=== PATIENT | female | born 1960 | race Caucasian/White ===

== ENCOUNTER → 2016-10-09 | Outpatient (CLI) | payer OTHER ==
[~2016-10-09] MED LIST: BETA TCP PO; DIGE1CAP7 PO; FERR325T74 PO; IBUP-1427 PO; Iron PO; [UNRECOGNIZED DRUG - OTHER] PO
== END | disposition home or self-care (01) ==
LOC: C.PAPS 09:32
PROVIDERS: ATTEND Obstetrics & Gynecology
DX: Z01.419 Encounter for gynecological examination (general) (routine) without abnormal findings (principal)

== ENCOUNTER → 2016-10-17 | Outpatient (CLI) | payer OTHER ==
--- NOTE | 2016-10-17 15:18 | MAMMOGRAPHY REPORT ---
BILATERAL DIGITAL SCREENING MAMMOGRAM TOMOSYNTHESIS WITH CAD: 10/17/2016 TECHNIQUE: Breast tomosynthesis in addition to standard 2D mammography was performed. Current study was also evaluated with a Computer Aided Detection (CAD) system. COMPARISON: No prior exams were available for comparison. BREAST COMPOSITION: There are scattered areas of fibroglandular density in both breasts. FINDINGS: No suspicious masses, calcifications, or areas of architectural distortion are noted in e ither breast. IMPRESSION: ACR BI-RADS CATEGORY 1: NEGATIVE There is no mammographic evidence of malignancy. A 1 year screening mammogram is recommended. The p atient will receive written notification of the results. Approximately 10% of breast cancers are not detected with mammography. A negative mammographic repor t should not delay biopsy if a clinically suggestive mass is present. Stephani Fountain M.D. ah/:10/17/2016 14:02:29 Finish Sander: Susanna PIERCE)(Vickie), [facility] letter sent: Normal 1/2 BI-RADS Code: ACR BI-RADS Category 1: Negative
== END | disposition home or self-care (01) ==
LOC: C.MAMM 11:26
PROVIDERS: ATTEND Obstetrics & Gynecology
DX: Z12.31 Encounter for screening mammogram for malignant neoplasm of breast (principal)

== ENCOUNTER 2016-10-31 15:04 | Emergency (ER) | payer OTHER ==
[~2016-10-31] VITALS: Ht 162.6 cm; Wt 91.6 kg
[~2016-10-31 15:04] MED LIST changes: -Iron PO
[2016-10-31 15:43] VITALS: TEMP 36.6; Ht 162.6 cm; Wt 91.6 kg
[2016-10-31] MEDS ORDERED: HYDROmorphone INJ 0.5 MG/0.5 ML SYR IV STA (16:43)
[2016-10-31] MEDS ORDERED: SODIUM CHLORIDE 0.9% 1000ML 1,000 ML IV ONE (16:45)
[2016-10-31] MEDS ORDERED: Iron PO (16:47)
[2016-10-31 16:56] LABS: BASO % 0.3 %; BASO ABS # 0.03 K/uL (0-0.2); COMPLETE YES; EOS % 2.5 %; HEMATOCRIT 47.6 % (37-47); IG% 0.3 %; LYMPH % 42.8 %; LYMPH ABS # 4.55 K/uL (1.2-3.4); MEAN CELL VOLUME 92.2 fL (80-100); MEAN CORPUSCULAR HGB CONC 33.6 g/dl (32-36); MEAN PLATELET VOLUME 11.4 fL (7.4-10.4); MONO % 4.8 %; NEUT % 49.3 %; PLATELET COUNT 248 K/uL (130-400); RED BLOOD COUNT 5.16 M/uL (4.2-5.4); WHITE BLOOD COUNT 10.64 K/uL (4.8-10.8)
[2016-10-31 17:03] LABS: URINE APPEARANCE CLOUDY (CLEAR); URINE BILIRUBIN NEG (NEG); URINE COLOR YELLOW; URINE EPITHELIAL CELL AUTO >30 /lpf (0-5); URINE NITRITE NEG (NEG); URINE PH 7.5 (4.5-7.5); URINE SPECIFIC GRAVITY 1.017 (1.000-1.030); UROBILINOGEN NEG (NEG); ZZUR CULT IF INDIC CLEAN CATCH NO
--- NOTE | 2016-10-31 17:04 | EMERGENCY ROOM VISIT NOTE ---
History Report prepared by Nadia: Carolina Winter Under the Supervision of: Dr. Fausto Owen D.O. First contact with patient: 16:38 Chief Complaint: ABDOMINAL PAIN Stated Complaint: PAIN IN LIVER AREA AND CHEST AREA Nursing Triage Summary: had stone removed from bile duct and left upper quad pain chest pain for couple weeks intermittantly History of Present Illness The patient is a 56 year old female who presents to the Emergency Room with complaints of persistent right upper quadrant abdominal pain that began several days ago. He currently rates his discomfort as a 4-5/10 in severity, but at it' s worst it has been between 8-10/10 in severity. The patient states that at the end of August she had been experiencing right upper quadrant abdominal pain. She states that after several testings, it was revealed that the patient had a stone in her bile duct. The patient states that she had the stone removed at that time. She states that she previously had a cholecystectomy in 2009, and states that she was told that the stone has been in the bile duct since then. The patient states that her pain that she is experiencing today is similar to the pain she experienced with the stone that was in her bile duct. She states that she has been having abnormal bowel movements, noting that they are waxy. The patient additionally notes intermittent chest pain for the past couple weeks. She denies having any stents placed in her liver and denies being told that she had scar build up. The patient states that she is a smoker. Source of History: patient Onset: several days ago Position: abdomen (RUQ) Symptom Intensity: 4-5/10 Timing: other (persistent) Associated Symptoms: + chest pain Note: Associated Symptoms: waxy bowel movements. Review of Systems See above for pertinent positives & negatives. A total of 10 systems reviewed and were otherwise negative. Past Medical & Surgical Surgical Problems: (1) S/P cholecystectomy (2) S/P dilation and curettage (3) S/P tubal ligation Family History No pertinent family history stated. Social History Smoking Status: Current Every Day Smoker Marital Status: Occupation Status: disabled Current/Historical Medications Scheduled Digestive Enzymes (Digestive Enzymes), 1 TAB PO BID [Iron], 25 MG PO DAILY Allergies Coded Allergies: Iodinated Diagnostic Agents (Verified Allergy, Mild, HIVES, 08/12/16) Iodine (Verified Allergy, Mild, RED ON SORE AREAS WHEN USED ON SKIN, ) Monosodium Glutamate (Verified Allergy, Mild, MIGRAINES, 08/12/16) Uncoded Allergies: DYES (Allergy, Mild, AVOID ALL DYE COLOR - KIDNEY PAIN, 08/07/16) WILL BE HAVING MORE TESTING THE MONTH OF AUGUST Physical Exam Vital Signs Date Time Temp Pulse Resp B/P Pulse Ox O2 Delivery O2 Flow Rate FiO2 10/31/16 17:03 86 16 99 Room Air 10/31/16 16:46 85 10/31/16 15:43 36.6 88 18 147/81 96 Physical Exam GENERAL: Patient is well appearing and in no acute distress. HEENT: No acute trauma, normocephalic atraumatic, mucous membranes moist, no nasal congestion, no scleral icterus. NECK: No stridor, no adenopathy, no meningismus, trachea is midline. LUNGS: No dyspnea. Clear to auscultation and equal bilaterally. No wheeze, no rhonchi. HEART: Regular rate and rhythm. No murmurs, rubs, gallops appreciated. ABDOMEN: Soft, nontender, bowel sounds positive, no masses appreciated, no peritonitis. BACK: No midline tenderness, no CVA tenderness EXTREMITIES: Normal motion all extremities, no cyanosis, no edema. NEUROLOGIC: Alert and oriented, no acute motor or sensory deficits, no focal weakness, cranial nerves grossly intact. SKIN: No rash, no jaundice, no diaphoresis. Medical Decision & Procedures Laboratory Results 10/31/16 16:40 Red Blood Count 5.16, Mean Corpuscular Volume 92.2, Mean Corpuscular Hemoglobin 31.0, Mean Corpuscular Hemoglobin Concent 33.6, Mean Platelet Volume 11.4, Neutrophils (%) (Auto) 49.3, Lymphocytes (%) (Auto) 42.8, Monocytes (%) (Auto) 4.8, Eosinophils (%) (Auto) 2.5, Basophils (%) (Auto) 0.3, Neutrophils # (Auto) 5.25, Lymphocytes # (Auto) 4.55, Monocytes # (Auto) 0.51, Eosinophils # (Auto) 0.27, Basophils # (Auto) 0.03 10/31/16 16:40 Test 10/31/16 16:40 10/31/16 17:54 White Blood Count 10.64 K/uL (4.8-10.8) Red Blood Count 5.16 M/uL (4.2-5.4) Hemoglobin 16.0 g/dL (12.0-16.0) Hematocrit 47.6 % (37-47) Mean Corpuscular Volume 92.2 fL (80-100) Mean Corpuscular Hemoglobin 31.0 pg (25-34) Mean Corpuscular Hemoglobin Concent 33.6 g/dl (32-36) Platelet Count 248 K/uL (130-400) Mean Platelet Volume 11.4 fL (7.4-10.4) Neutrophils (%) (Auto) 49.3 % Lymphocytes (%) (Auto) 42.8 % Monocytes (%) (Auto) 4.8 % Eosinophils (%) (Auto) 2.5 % Basophils (%) (Auto) 0.3 % Neutrophils # (Auto) 5.25 K/uL (1.4-6.5) Lymphocytes # (Auto) 4.55 K/uL (1.2-3.4) Monocytes # (Auto) 0.51 K/uL (0.11-0.59) Eosinophils # (Auto) 0.27 K/uL (0-0.5) Basophils # (Auto) 0.03 K/uL (0-0.2) RDW Standard Deviation 48.1 fL (36.4-46.3) RDW Coefficient of Variation 14.2 % (11.5-14.5) Immature Granulocyte % (Auto) 0.3 % Immature Granulocyte # (Auto) 0.03 K/uL (0.00-0.02) Urine Color YELLOW Urine Appearance CLOUDY (CLEAR) Urine pH 7.5 (4.5-7.5) Urine Specific [place] 1.017 (1.000-1.030) Urine Protein NEG (NEG) Urine Glucose (UA) NEG (NEG) Urine Ketones NEG (NEG) Urine Occult Blood TRACE (NEG) Urine Nitrite NEG (NEG) Urine Bilirubin NEG (NEG) Urine Urobilinogen NEG (NEG) Urine Leukocyte Esterase TRACE (NEG) Urine WBC (Auto) 1-5 /hpf (0-5) Urine RBC (Auto) 10-30 /hpf (0-4) Urine Hyaline Casts (Auto) 0 /lpf (0-5) Urine Epithelial Cells (Auto) >30 /lpf (0-5) Urine Bacteria (Auto) NEG (NEG) Anion Gap 7.0 mmol/L (3-11) Est Creatinine Clear Calc Drug Dose 95.7 ml/min Estimated GFR () 108.5 Estimated GFR (Non- 93.6 BUN/Creatinine Ratio 15.3 (10-20) Calcium Level 9.5 mg/dl (8.5-10.1) Total Bilirubin 0.6 mg/dl (0.2-1) Direct Bilirubin 0.1 mg/dl (0-0.2) Aspartate Amino Transf (AST/SGOT) 12 U/L (15-37) Alanine Aminotransferase (ALT/SGPT) 24 U/L (12-78) Alkaline Phosphatase 108 U/L (45-117) Total Protein 7.7 gm/dl (6.4-8.2) Albumin 4.0 gm/dl (3.4-5.0) Lipase 132 U/L (73-393) Bedside Troponin I 0.000 ng/ml (0-0.045) Laboratory results as reviewed by me. Medications Administered Medications (Trade) Dose Ordered Sig/Renetta Route Start Time Stop Time Status Last Admin Dose Admin Sodium Chloride (Nss 1000ml) 1,000 ml @ 999 mls/hr Q1H1M ONCE IV 10/31/16 16:45 10/31/16 17:45 DC 10/31/16 17:03 999 MLS/HR ECG Indication: chest pain Rate (beats per minute): 76 Rhythm: normal sinus Findings: other (normal axis, normal intervals, no ST segment changes) ED Course 1645: The patient was evaluated in room B2. A complete history and physical exam was performed. Ordered Sodium Chloride 1000 ml @ 999 mls/hr IV. 1736: I reevaluated the patient and she is resting comfortably. I discussed the exam findings with her and I discussed the treatment plan. She verbalized complete understanding and agreement. She is ready to go home. Medical Decision Differential diagnosis: Etiologies such as appendicitis, diverticulitis, PUD, biliary pathology, UTI, pancreatitis, obstruction, mesenteric ischemia, aortic pathology, infections, inflammatory bowel disease, renal colic, as well as others were entertained. Patient is a 56-year-old female with significant past medical history for a cholecystectomy in 2009 and a follow-up ERCP for a retained common bile duct stone August 2016. She presents today with a several day history of increasing right upper quadrant pain similar to the tach she was having this with the retained stone. She also states she is passing "stones" through her stool. She also has associated chest pain when she has this right upper quadrant pain. There is no family history of sudden cardiac , there is a family history she believes of her mother having a heart attack before age 55. She does smoke, denies illicit drug use, does consume alcohol socially. Laboratory examination was unremarkable today, her LFTs were normal, troponins negative. She gets a heart score of 3, which is low risk for cardiac events. I discussed that nothing in medicine is 100%, and advised her to follow up with her primary care doc next week for possible cardiac evaluation. Again I reiterated do not feel that this is a cardiac event, her EKG is normal, troponins are negative. I did offer the patient admission if she so desired however the patient is opting for outpatient follow-up which is reasonable given her low heart score. Impression Primary Impression: Right upper quadrant abdominal pain Additional Impressions: Tobacco abuse S/P cholecystectomy Scribe Attestation The scribe's documentation has been prepared under my direction and personally reviewed by me in its entirety. I confirm that the note above accurately reflects all work, treatment, procedures, and medical decision making performed by me. Departure Information Dispostion Home / Self-Care Referrals Nikita Chaudhary M.D. (PCP) Forms Call Back Authorization, HOME CARE DOCUMENTATION FORM, IMPORTANT VISIT INFORMATION Patient Instructions Abdominal Pain, My [employer] Additional Instructions No smoking. Follow-up with her primary care doctor this week Return for severe chest pain, shortness of breath, passing out, or any other concerns. Follow-up with your GI doctor as previously scheduled, you may need evaluation for scarring in the bile duct. Problem Qualifiers
[2016-10-31 17:06] LABS: BUN/CREATININE RATIO 15.3 (10-20); CALCIUM 9.5 mg/dl (8.5-10.1); CREATININE 0.72 mg/dl (0.60-1.20); POTASSIUM 3.8 mmol/L (3.5-5.1)
[2016-10-31 17:10] LABS: MANUAL MICROSCOPIC REQUIRED? NO; REVIEW REQ? NO
[2016-10-31 18:37] VITALS: BP 147/99; PULSE 82; O2SAT 97
== END 2016-10-31 18:38 | disposition home or self-care (01) ==
LOC: C.EDB 15:06
DX: R10.11 Right upper quadrant pain (principal); F17.210 Nicotine dependence, cigarettes, uncomplicated; Z90.49 Acquired absence of other specified parts of digestive tract; Z98.51 Tubal ligation status; Z79.899 Other long term (current) drug therapy

== ENCOUNTER → 2017-01-22 | Outpatient (CLI) | payer OTHER ==
[~2017-01-22] MED LIST changes: -BETA TCP PO; -FERR325T74 PO; -IBUP-1427 PO; +Iron PO; -[UNRECOGNIZED DRUG - OTHER] PO
[2017-01-22 12:21] LABS: BASO % 0.4 %; BASO ABS # 0.05 K/uL (0-0.2); COMPLETE YES; EOS % 1.5 %; HEMATOCRIT 47.6 % (37-47); IG% 0.2 %; LYMPH % 26.7 %; LYMPH ABS # 3.25 K/uL (1.2-3.4); MEAN CELL VOLUME 93.7 fL (80-100); MEAN CORPUSCULAR HEMOGLOBIN 31.5 pg (25-34); MEAN CORPUSCULAR HGB CONC 33.6 g/dl (32-36); MONO % 4.4 %; NEUT % 66.8 %; PLATELET COUNT 254 K/uL (130-400); RED BLOOD COUNT 5.08 M/uL (4.2-5.4); WHITE BLOOD COUNT 12.15 K/uL (4.8-10.8)
[2017-01-22 12:33] LABS: URINE APPEARANCE CLEAR (CLEAR); URINE BILIRUBIN NEG (NEG); URINE COLOR YELLOW; URINE EPITHELIAL CELL AUTO 0-5 /lpf (0-5); URINE NITRITE NEG (NEG); URINE PH 7.5 (4.5-7.5); URINE SPECIFIC GRAVITY 1.005 (1.000-1.030); UROBILINOGEN NEG (NEG)
[2017-01-22 12:45] LABS: MANUAL MICROSCOPIC REQUIRED? NO; REVIEW REQ? NO
[2017-01-22 13:19] LABS: FERRITIN 91.2 ng/ml (8.0-388.0)
== END | disposition home or self-care (01) ==
LOC: C.LABBFT 08:33
PROVIDERS: ATTEND Internal Medicine
DX: N13.30 Unspecified hydronephrosis (principal)

== ENCOUNTER → 2017-10-12 | Outpatient (CLI) | payer OTHER | END | disposition home or self-care (01) | LOC: C.PATHSPEC 16:59 | PROVIDERS: ATTEND Urology | DX: N13.30 Unspecified hydronephrosis (principal) ==

== ENCOUNTER 2021-05-07 19:48 | Inpatient (IN) ==
[2021-05-07] MEDS ORDERED: LABETALOL HCL 100 MG TAB PO ONE (20:22)
--- NOTE | 2021-05-07 20:22 | Emergency Department Note ---
Impression & Plan Psychosis, Delusions, Hypertension ED Provider Note NAME: ARNAV WEIGHT AGE: 61 SEX: F : 1960 ARRIVES VIA: [employer] INFORMANT: [Patient][notes] ED PROVIDER(S): [Venkat Munguia MD] CHIEF COMPLAINT: Mental health evaluation HISTORY OF PRESENT ILLNESS: The patient is a 61-year-old female who presents with a 302 petition and warrant against her. The patient is reportedly delusional and paranoid. She is not sleeping. 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 She feels if she does not help with the planes, they will crash. 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 She states "people hear me that is all I can say." The patient does not believe she needs to be here. She was brought by police. She denies using any psychiatric medications on a regular basis. She states that she used to take iron. She has no current medications prescribed. Of note, the patient carries a history of a previous 302 evaluation. REVIEW OF SYSTEMS: See HPI for pertinent positives and negatives. A total of ten systems were reviewed and were otherwise negative. PMHx/PSHx: See Below SOCIAL HISTORY: See Below. PHYSICAL EXAM: GENERAL: Patient is in no acute distress. HEENT: No acute trauma, normocephalic atraumatic, mucous membranes moist, no nasal congestion, no scleral icterus. NECK: No stridor, no adenopathy, no meningismus, trachea is midline. LUNGS: Clear to auscultation bilaterally, no wheeze, no rhonchi, breath sounds equal. HEART: Mildly tachycardic, regular rhythm, no murmurs. ABDOMEN: Soft, nontender, bowel sounds positive, no hernias, no peritonitis. EXTREMITIES: No cyanosis or edema, full range of motion of all the joints without pain or difficulty, no signs for acute trauma. NEUROLOGIC: Oriented x 3, no acute motor or sensory deficits, no focal weakness. SKIN: No rash, no jaundice, no diaphoresis. Psychiatric: Paranoid, does appear to demonstrate some delusional thinking. Denies being suicidal. Does not think she needs to be at the hospital. DIFFERENTIAL DIAGNOSIS: Mood disorder, infection, hypoglycemia, electrolyte abnormalities, anxiety, depression, delusional thinking, schizophrenia, cardiac sources, intracerebral event, toxicologic etiology, trauma, neurologic event, as well as other pathologies. EMERGENCY DEPARTMENT COURSE/PROCEDURES: ECG: Indication was tachycardia. The ECG shows a sinus tachycardia with a rate of 102. There is no ST elevation, no PVCs. The QTc is 469. Continuous Cardiac Monitoring: An order was placed for continuous cardiac monitoring. The monitor shows a rate of 119 with sinus tachycardia. MEDICAL DECISION MAKING: There is a mild leukocytosis, this has been demonstrated before. No concerning anemia. There was a normal platelet count. No significant electrolyte abnormality or kidney failure. No concerning liver enzyme elevation. The patient appeared to be in a euthyroid state. ECG showed a sinus tachycardia, no acute ischemic change. Cardiac enzyme testing x1 was not consistent with acute cardiac injury. Urinalysis showed contamination, no infection. Aspirin, Tylenol and alcohol levels were undetectable. Urine tox was negative. Covid testing returned negative. The patient was quite hypertensive. Looking back at her previous visits, she has been running a high blood pressure. The patient did agree to take 100 mg of oral labetalol. This brought her blood pressure down, the pressure is now 146/97, markedly improved. The patient was felt medically clear for a psychiatric evaluation. She presents with a 302 petition and warrant against her. She has been delusional, she appears to show evidence for psychosis. By report, she has been noncompliant with care. The patient is in no condition to be discharged home. She requires an inpatient psychiatric stay. The medical portion of the 302 was signed. A bed search is underway. At this point, the case has been assumed by Dr. Flores at the change of shift, please see his notes for the final disposition/plan. Past Med/Surg History Medical History Hypertension Social History Smoking Status: Current every day smoker Tobacco Type: Cigarettes Preferred Language: Latvian Feels Safe at Home: Yes Allergies Allergies Allergy/AdvReac Type Severity Reaction Status Date / Time Iodinated Contrast Media Allergy Mild HIVES Verified 04/15/21 13:48 iodine Allergy Mild RED ON Verified 04/15/21 13:48 SORE AREAS WHEN USED ON SKIN monosodium glutamate Allergy Mild MIGRAINES Verified 04/15/21 13:48 DYES Allergy Mild AVOID ALL Uncoded 04/15/21 13:48 DYE COLOR - KIDNEY PAIN Home Meds Home Medications Medication Instructions Recorded Confirmed No Known Home Medications 04/15/21 05/07/21 Results & Data (ED) Vital Signs Vital Signs - 24 hr 05/07/21 20:00 05/07/21 21:25 05/07/21 21:43 Temperature 37.1 C Temperature Source Oral Pulse Rate 120 H 107 H 102 H Pulse Rhythm Regular Respiratory Rate 20 19 16 Respiratory Effort / Characteristics Non-Labored Spontaneous Respiratory Depth Normal Respiratory Pattern Regular Blood Pressure 176/121 H 227/128 H 183/128 H Blood Pressure Mean 139 161 146 Blood Pressure Position Sitting Pulse Oximetry 96 Oxygen Delivery Method Room Air Sepsis Recent Fever Within 48 Hours No Sepsis New/Unexplained Change in Mental Status No Sepsis Action Taken by Nursing No Action Required 05/07/21 21:44 05/07/21 22:00 05/07/21 22:30 Temperature Temperature Source Pulse Rate 102 H 89 87 Pulse Rhythm Respiratory Rate 20 20 22 Respiratory Effort / Characteristics Respiratory Depth Respiratory Pattern Blood Pressure 183/128 H 179/115 H 159/99 H Blood Pressure Mean 146 136 119 Blood Pressure Position Pulse Oximetry 98 Oxygen Delivery Method Room Air Sepsis Recent Fever Within 48 Hours Sepsis New/Unexplained Change in Mental Status Sepsis Action Taken by Nursing 05/07/21 23:00 Temperature Temperature Source Pulse Rate 92 H Pulse Rhythm Respiratory Rate 17 Respiratory Effort / Characteristics Respiratory Depth Respiratory Pattern Blood Pressure 146/97 H Blood Pressure Mean 113 Blood Pressure Position Pulse Oximetry Oxygen Delivery Method Sepsis Recent Fever Within 48 Hours Sepsis New/Unexplained Change in Mental Status Sepsis Action Taken by Group Home Medications Current Medication List: was personally reviewed by me Laboratory Data Attestation: I reviewed the patient's lab results. Result diagrams: 05/07/21 20:48 05/07/21 20:48 Lab Results 05/07/21 05/07/21 05/07/21 Range/Units 20:05 20:08 20:48 WBC 11.47 H (4.8-10.8) K/uL RBC 5.32 (4.2-5.4) M/uL Hgb 16.2 H (12.0-16.0) g/dL Hct 48.6 H (37-47) % MCV 91.4 (80-100) fL MCH 30.5 (25-34) pg MCHC 33.3 (32-36) g/dL RDW Std Deviation 48.5 H (36.4-46.3) fL RDW Coeff of Amilcar 14.4 (11.5-14.5) % Plt Count 241 (130-400) K/uL MPV 11.6 H (7.4-10.4) fL Immature Gran % (Auto) 0.2 % Neut % (Auto) 56.1 % Lymph % (Auto) 35.1 % [place] % (Auto) 6.6 % Eos % (Auto) 1.7 % Baso % (Auto) 0.3 % Neut # (Auto) 6.43 (1.4-6.5) K/uL Lymph # (Auto) 4.03 H (1.2-3.4) K/uL [place] # (Auto) 0.76 H (0.11-0.59) K/uL Eos # (Auto) 0.20 (0-0.5) K/uL Baso # (Auto) 0.03 (0-0.2) K/uL Immature Gran # (Auto) 0.02 (0.00-0.02) K/uL Sodium (136-145) mmol/L Potassium (3.5-5.1) mmol/L Chloride (98-107) mmol/L Carbon Dioxide (21-32) mmol/L Anion Gap (3-11) BUN (7-18) mg/dl Creatinine (0.6-1.2) mg/dl Est Cr Clr Drug Dosing ml/min Est GFR ( Amer) ml/min Est GFR (Non-Af Amer) ml/min BUN/Creatinine Ratio (10-20) Glucose (70-99) mg/dl Calcium (8.5-10.1) mg/dl Total Bilirubin (0.2-1) mg/dl AST (15-37) U/L ALT (12-78) U/L Alkaline Phosphatase (45-117) U/L Troponin I (0-0.045) ng/ml Total Protein (6.4-8.2) gm/dl Albumin (3.4-5.0) gm/dl Globulin (2.5-4.0) gm/dl Albumin/Globulin Ratio (0.9-2) TSH (0.300-4.500) uIu/ml Urine Color Dark Yellow Urine Appearance Clear (Clear) Urine pH 5.5 (4.5-7.5) Ur Specific [place] 1.025 (1.000-1.030) Urine Protein Negative (Negative) Urine Glucose (UA) Negative (Negative) Urine Ketones Trace H (Negative) Urine Blood 2+ H (Negative) Urine Nitrite Negative (Negative) Urine Bilirubin Negative (Negative) Urine Urobilinogen Negative (Negative) Ur Leukocyte Esterase Negative (Negative) Urine WBC (Auto) 5-10 H (0-5) /hpf Urine RBC (Auto) 0-4 (0-4) /hpf U Hyaline Cast (Auto) 5-10 H (0-5) /lpf U Epithel Cells (Auto) >30 H (0-5) /lpf Urine Bacteria (Auto) 1+ H (Negative) Salicylates (2.8-20) mg/dl Urine Opiates Screen Neg (Neg) Ur Methadone, Qual Neg (Neg) Acetaminophen (10-30) ug/ml Urine Barbiturates Neg (Neg) Ur Phencyclidine (PCP) Neg (Neg) U Amphetamin/Meth Scrn Neg (Neg) MDMA (Ecstasy) Screen Neg (Neg) U Benzodiazepines Scrn Neg (Neg) Ur Cocaine Metabolite Neg (Neg) U Marijuana (THC) Screen Neg (Neg) Ethyl Alcohol mg/dL (0-3) mg/dl COVID-19 Eval Order SARS-CoV-2, RNA, NAAT (NEGATIVE) 05/07/21 05/07/21 05/07/21 Range/Units 20:48 20:48 20:48 WBC (4.8-10.8) K/uL RBC (4.2-5.4) M/uL Hgb (12.0-16.0) g/dL Hct (37-47) % MCV (80-100) fL MCH (25-34) pg MCHC (32-36) g/dL RDW Std Deviation (36.4-46.3) fL RDW Coeff of Amilcar (11.5-14.5) % Plt Count (130-400) K/uL MPV (7.4-10.4) fL Immature Gran % (Auto) % Neut % (Auto) % Lymph % (Auto) % [place] % (Auto) % Eos % (Auto) % Baso % (Auto) % Neut # (Auto) (1.4-6.5) K/uL Lymph # (Auto) (1.2-3.4) K/uL [place] # (Auto) (0.11-0.59) K/uL Eos # (Auto) (0-0.5) K/uL Baso # (Auto) (0-0.2) K/uL Immature Gran # (Auto) (0.00-0.02) K/uL Sodium 139 (136-145) mmol/L Potassium 3.4 L (3.5-5.1) mmol/L Chloride 108 H (98-107) mmol/L Carbon Dioxide 26 (21-32) mmol/L Anion Gap 5.0 (3-11) BUN 11 (7-18) mg/dl Creatinine 0.56 L (0.6-1.2) mg/dl Est Cr Clr Drug Dosing 116.0 ml/min Est GFR ( Amer) 116.6 ml/min Est GFR (Non-Af Amer) 100.6 ml/min BUN/Creatinine Ratio 19.9 (10-20) Glucose 118 H (70-99) mg/dl Calcium 8.8 (8.5-10.1) mg/dl Total Bilirubin 0.9 (0.2-1) mg/dl AST 22 (15-37) U/L ALT 41 (12-78) U/L Alkaline Phosphatase 108 (45-117) U/L Troponin I < 0.015 (0-0.045) ng/ml Total Protein 7.2 (6.4-8.2) gm/dl Albumin 3.7 (3.4-5.0) gm/dl Globulin 3.5 (2.5-4.0) gm/dl Albumin/Globulin Ratio 1.0 (0.9-2) TSH 1.200 (0.300-4.500) uIu/ml Urine Color Urine Appearance (Clear) Urine pH (4.5-7.5) Ur Specific [place] (1.000-1.030) Urine Protein (Negative) Urine Glucose (UA) (Negative) Urine Ketones (Negative) Urine Blood (Negative) Urine Nitrite (Negative) Urine Bilirubin (Negative) Urine Urobilinogen (Negative) Ur Leukocyte Esterase (Negative) Urine WBC (Auto) (0-5) /hpf Urine RBC (Auto) (0-4) /hpf U Hyaline Cast (Auto) (0-5) /lpf U Epithel Cells (Auto) (0-5) /lpf Urine Bacteria (Auto) (Negative) Salicylates < 1.7 L (2.8-20) mg/dl Urine Opiates Screen (Neg) Ur Methadone, Qual (Neg) Acetaminophen < 2 L (10-30) ug/ml Urine Barbiturates (Neg) Ur Phencyclidine (PCP) (Neg) U Amphetamin/Meth Scrn (Neg) MDMA (Ecstasy) Screen (Neg) U Benzodiazepines Scrn (Neg) Ur Cocaine Metabolite (Neg) U Marijuana (THC) Screen (Neg) Ethyl Alcohol mg/dL < 3.0 (0-3) mg/dl COVID-19 Eval Order SARS-CoV-2, RNA, NAAT (NEGATIVE) 05/07/21 05/07/21 Range/Units 21:22 21:22 WBC (4.8-10.8) K/uL RBC (4.2-5.4) M/uL Hgb (12.0-16.0) g/dL Hct (37-47) % MCV (80-100) fL MCH (25-34) pg MCHC (32-36) g/dL RDW Std Deviation (36.4-46.3) fL RDW Coeff of Amilcar (11.5-14.5) % Plt Count (130-400) K/uL MPV (7.4-10.4) fL Immature Gran % (Auto) % Neut % (Auto) % Lymph % (Auto) % [place] % (Auto) % Eos % (Auto) % Baso % (Auto) % Neut # (Auto) (1.4-6.5) K/uL Lymph # (Auto) (1.2-3.4) K/uL [place] # (Auto) (0.11-0.59) K/uL Eos # (Auto) (0-0.5) K/uL Baso # (Auto) (0-0.2) K/uL Immature Gran # (Auto) (0.00-0.02) K/uL Sodium (136-145) mmol/L Potassium (3.5-5.1) mmol/L Chloride (98-107) mmol/L Carbon Dioxide (21-32) mmol/L Anion Gap (3-11) BUN (7-18) mg/dl Creatinine (0.6-1.2) mg/dl Est Cr Clr Drug Dosing ml/min Est GFR ( Amer) ml/min Est GFR (Non-Af Amer) ml/min BUN/Creatinine Ratio (10-20) Glucose (70-99) mg/dl Calcium (8.5-10.1) mg/dl Total Bilirubin (0.2-1) mg/dl AST (15-37) U/L ALT (12-78) U/L Alkaline Phosphatase (45-117) U/L Troponin I (0-0.045) ng/ml Total Protein (6.4-8.2) gm/dl Albumin (3.4-5.0) gm/dl Globulin (2.5-4.0) gm/dl Albumin/Globulin Ratio (0.9-2) TSH (0.300-4.500) uIu/ml Urine Color Urine Appearance (Clear) Urine pH (4.5-7.5) Ur Specific [place] (1.000-1.030) Urine Protein (Negative) Urine Glucose (UA) (Negative) Urine Ketones (Negative) Urine Blood (Negative) Urine Nitrite (Negative) Urine Bilirubin (Negative) Urine Urobilinogen (Negative) Ur Leukocyte Esterase (Negative) Urine WBC (Auto) (0-5) /hpf Urine RBC (Auto) (0-4) /hpf U Hyaline Cast (Auto) (0-5) /lpf U Epithel Cells (Auto) (0-5) /lpf Urine Bacteria (Auto) (Negative) Salicylates (2.8-20) mg/dl Urine Opiates Screen (Neg) Ur Methadone, Qual (Neg) Acetaminophen (10-30) ug/ml Urine Barbiturates (Neg) Ur Phencyclidine (PCP) (Neg) U Amphetamin/Meth Scrn (Neg) MDMA (Ecstasy) Screen (Neg) U Benzodiazepines Scrn (Neg) Ur Cocaine Metabolite (Neg) U Marijuana (THC) Screen (Neg) Ethyl Alcohol mg/dL (0-3) mg/dl COVID-19 Eval [facility] SARS-CoV-2, RNA, NAAT NEGATIVE (NEGATIVE) Administered Medications Discontinued Medications Labetalol HCl (Labetalol Hcl 100 Mg Tab) 100 mg PO NOW ONE Stop: 05/07/21 20:23 Last Admin: 05/07/21 21:33 Dose: 100 mg Documented by: [id number] Discharge Plan Visit Data Chief Complaint: Mental Health Evaluation Stated Complaint: 302 ED Provider: Arturo Flores Discharge Problem: Psychosis, Delusions, Hypertension Patient Disposition: Still a Patient Condition: Fair Forms Stand Alone Forms: [facility], Suicide Prevention Resources Prescriptions Prescriptions: No Action No Known Home Medications RF: 0 Referrals Referrals: Gloria Morales MD [Primary Care Provider] -
[2021-05-07 21:02] LABS: Appearance Urine Clear (Clear); Bacteria Urine Automated 1+ (Negative); Bilirubin Urine Negative (Negative); Blood Urine 2+ (Negative); Color Urine Dark Yellow; Epithelial Cell Urine Auto >30 /lpf (0-5); Glucose Urine UA Negative (Negative); Ketones Urine Trace (Negative); Leukocyte Esterase Urine Negative (Negative); Nitrite Urine Negative (Negative); Protein Urine Negative (Negative); Specific Gravity Urine 1.025 (1.000-1.030); Urobilinogen Urine Negative (Negative); pH Urine 5.5 (4.5-7.5)
[2021-05-07 21:05] LABS: Basophils # (auto) 0.03 K/uL (0-0.2); Basophils % (auto) 0.3 %; Eosinophils % (auto) 1.7 %; Hematocrit (blood only) 48.6 % (37-47); Hemoglobin 16.2 g/dL (12.0-16.0); Immature Granulocytes # (auto) 0.02 K/uL (0.00-0.02); Immature Granulocytes % (auto) 0.2 %; Lymphocytes # (auto) 4.03 K/uL (1.2-3.4); Lymphocytes % (auto) 35.1 %; Mean Corpuscular Hemoglobin 30.5 pg (25-34); Mean Corpuscular Hgb Conc 33.3 g/dL (32-36); Mean Corpuscular Volume 91.4 fL (80-100); Mean Platelet Volume 11.6 fL (7.4-10.4); Monocytes # (auto) 0.76 K/uL (0.11-0.59); Monocytes % (auto) 6.6 %; Neutrophils # (auto) 6.43 K/uL (1.4-6.5); Neutrophils % (auto) 56.1 %; Platelet Count 241 K/uL (130-400); RDW Coefficient of Variation 14.4 % (11.5-14.5); RDW Standard Deviation 48.5 fL (36.4-46.3); Red Blood Count 5.32 M/uL (4.2-5.4); White Blood Count 11.47 K/uL (4.8-10.8)
[2021-05-07 21:13] LABS: RBC Urine Automated 0-4 /hpf (0-4)
[2021-05-07 21:25] LABS: Alanine Aminotransferase 41 U/L (12-78); Albumin Level 3.7 gm/dl (3.4-5.0); Aspartate Aminotransferase 22 U/L (15-37); BUN Creatinine Ratio 19.9 (10-20); Blood Urea Nitrogen 11 mg/dl (7-18); Calcium 8.8 mg/dl (8.5-10.1); Carbon Dioxide 26 mmol/L (21-32); Chloride 108 mmol/L (98-107); Est GFR (African American) 116.6 ml/min; Est GFR (Non-African American) 100.6 ml/min; Glucose 118 mg/dl (70-99); Potassium 3.4 mmol/L (3.5-5.1); Sodium 139 mmol/L (136-145)
[2021-05-07 21:26] LABS: Acetaminophen < 2 ug/ml (10-30); Salicylate < 1.7 mg/dl (2.8-20)
[2021-05-07 21:35] LABS: Alkaline Phosphatase 108 U/L (45-117); Bilirubin,Total 0.9 mg/dl (0.2-1); Globulin 3.5 gm/dl (2.5-4.0); Total Protein 7.2 gm/dl (6.4-8.2); Troponin I < 0.015 ng/ml (0-0.045)
[2021-05-07 21:35] LABS: Amphetamines+Metham, Urine Neg (Neg); Barbiturates, Urine Neg (Neg); Benzodiazepine, Urine Neg (Neg); Cocaine, Urine Neg (Neg); MDMA (Ecstacy), Urine Neg (Neg); Methadone, Urine Neg (Neg); Opiate, Urine Neg (Neg); Phencyclidine, Urine Neg (Neg)
--- NOTE | 2021-05-07 23:23 | Emergency Department Note ---
ED Visit Note ED Physician Sign Out Note: 61 yr old female with acute delusional thoughts and paranoia. Long history of psychiatric issues and psychosis. She has been medically cleared and [address] Munguia who signed patient out to me. Pending placement at this time. Initially HTN and refusing anything to calm herself down. After some back and forth eventually just allowed to relax for a while and BP trending down. 3 [place] in to evaluate and will admit. Patient stable at this time. Arturo Flores MD : Psychosis Qualifiers: Psychosis type: unspecified psychosis type Qualified Code(s): F29 - Unspecified psychosis not due to a substance or known physiological condition Hypertension Qualifiers: Hypertension type: unspecified Qualified Code(s): I10 - Essential (primary) hypertension
[2021-05-08] MEDS ORDERED: ALPRAZolam 0.5 MG TABLET PO STA (00:35)
[2021-05-08] MEDS ORDERED: ALUMINUM/MAGNESIUM SUSP 30 ML UDC PO PRN (03:12)
[2021-05-08] MEDS ORDERED: SODIUM CHLORIDE 0.65% NA SOLN 45 ML (OCEAN) PRN (03:12)
[2021-05-08] MEDS ORDERED: hydrOXYzine HCl 25 MG TAB PO PRN ×2 (03:12)
[2021-05-08] MEDS ORDERED: ACETAMINOPHEN 325 MG TAB PO PRN (03:12)
[2021-05-08] MEDS ORDERED: MAGNESIUM HYDROXIDE SUSP 30 ML UDC PO PRN (03:12)
[2021-05-08] MEDS ORDERED: BISMUTH SUBSALICYLATE LIQD 236 ML PO PRN (03:12)
[2021-05-08] MEDS ORDERED: LORazepam 1 MG TAB PO PRN (03:14)
[2021-05-08] MEDS ORDERED: haloperidoL 5 MG TAB PO PRN (03:15)
[2021-05-08] MEDS: NICOTINE 21 MG/24 HR TDSY TD SCH (09:34)
[2021-05-08] MEDS ORDERED: BENZTROPINE MESYLATE 1 MG TAB PO PRN (15:16)
--- NOTE | 2021-05-08 15:16 | History & Physical ---
Date of Service May 08, 2021 Impression / Recommendations Impression 61 yo female with longstanding diagnosis of schizophrenia, no medication for years, presents with increase in paranoia driven primarily by a Capgras' delusion. 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 Additional collateral is needed. (1) Psychosis: Psychosis type: unspecified psychosis type Qualified Code(s): F29 - Unspecified psychosis not due to a substance or known physiological condition 05/08/21--The patient was admitted to the [facility] ([facility] unit) on q15 min checks (behavioral with suicide precautions) for safety. The patient will participate in group, recreational, and milieu therapies and will be offered additional individual and family sessions as clinically appropriate. The patient is adamantly refusing medications at this time, Ativan and antipsychotics were offered. She is attending to ADLs and meals on unit but is unsafe to return home given agitation around belief has been replaced. Her condition appears to be driving hypertension and VS will be monitored. Prn Ativan and Haldol ordered pending additional collateral. May be difficult to justify forced meds but unlikely to recover without them, clearly if ultimately taking meds would need conversion to HEAD. Delusions are sometimes less likely to respond than other positive symptoms. MNPR due to delusions and unpredictable irritability. Inventory Assets Strengths: has been out of hospital for some time, identifies trust in Dr. Akbar Needs: collateral, family involvement in care Risk Factors Assessment Male: No : Yes Do You Have Access To A Gun?: Yes (she reports that got guns returned after her last 302) Mental Health Diagnoses: Yes Substance Use Disorders: No Previous Attempt: No Protective Factors Assessment Employed: No Psychiatric History Identifying Data ARNAV GARCIA is a 61-year-old F who currently lives in [place] with her , has a history of schizophrenia (untreated with medication for 7+ years), and was admitted on 05/08/21 02:18 on a 302 involuntary commitment for paranoid delusions. Chief Complaint "I don't know why, but they replaced my with another tawanna.". History of Present Illness 61 yo female brought to ED due to family concerns that she is increasingly paranoid, believing that her has been replaced with an imposter. The patient is angry to be hospitalized, believes that the hospital is just trying to make money. Admits that she has been locking herself in her room at night because her has been replaced with "some [place]" as a mole on the back of his head/neck doesn't appear how it used to. She feels this is angry and yells and her wouldn't do that. Her is reportedly working days after several years of night supervisor so she doesn't "like that tawanna out in the workshop". She is convinced that the imposter and who ever put him there are building "things I can't tell you about" to ship to [facility] in [place]. She reports that she is nearing alf but doesn't want to move to [place] with "this " and would instead divorce him. Petitioning statement reports that she has also disconnected the phone line so she can't be monitored and doesn't sleep for up to 72 hours at a time. "If they can replace him, I imagine that they did it to spy on me" She tells me that she worries the man in the home could try to rape her and won't sleep in the room with him. She locks herself in another room. "would you be able to sleep like that?". She was in the ED with daughter 04/15/21 for same complaints but was not felt to meet involuntary commitment criteria at that time. There was some additional concern about disorganization as sometimes leaving the stove on/unattended. Additional beliefs that she can control whether or not planes crash. 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 She states her most recent job was [employer] but was let go due to the pandemic. The patient did receive labetolol 100 mg in the ED for hypertension and is now very focussed on sodium, states she doesn't feel comfortable drinking the Dasani water as too much salt in it. She is eating meals. Past Psychiatric History Current Psychiatric Diagnosis: hx of schizophrenia Outpatient Services: Dr. Akbar, last seen while still [facility]. States that she attempted to start services again through [facility] but family states she cancels intakes. Previous Psych Admissions: 1997 [facility], prior to [facility]. Do You Have Access To A Gun?: Yes (she reports that got guns returned after her last 302) History of Previous Suicide Attempt: No Past Medication Trials: Celexa, Ativan, Xanax, Paxil, Risperdal, probably others Allergies Allergy/AdvReac Type Severity Reaction Status Date / Time Iodinated Contrast Media Allergy Mild HIVES Verified 04/15/21 13:48 iodine Allergy Mild RED ON Verified 04/15/21 13:48 SORE AREAS WHEN USED ON SKIN monosodium glutamate Allergy Mild MIGRAINES Verified 04/15/21 13:48 DYES Allergy Mild AVOID ALL Uncoded 04/15/21 13:48 DYE COLOR - KIDNEY PAIN Home Medications Medication Instructions Recorded Confirmed Type No Known Home Medications 04/15/21 05/07/21 History Family History Family History of: Doesn't Know Alcohol History Hx of Alcohol Use Over the Past 12 Months: Yes ("maybe 3 beers in a year") AUDIT Total Score: 1 Smoking Use Have You Smoked or Used Tobacco Products in the Last 30 Days: Yes tobacco type: cigarettes Smoking Status: Current every day smoker Smoking packs per day: 1 Substance History Hx of Prescription Med Misuse Over the Past 12 Months: No Hx of Over the Counter Med Misuse Over the Past 12 Months: No Hx of Inhalent Misuse Over the Past 12 Months: No Hx of Organic Substance Use Over the Past 12 Months: No Hx of Illegal Substances/Street Drug Use Over Past 12 Months: No Problems as a Result of Past Substance Use: None Identified Personal History Living Arrangements: Home Employment Status: Unemployed Marital Status: Number Of Children: daughter Beliefs That Will Affect Care: None Current Legal Problems: No Additional Comments: patient is relatively uncooperative with history Patient History Medical History Hypertension Social History Smoking Status: Current every day smoker Tobacco Type: Cigarettes Preferred Language: Libyan Communication Ability: Effective Tree Topper Required: No Beliefs That Will Affect Care: None Feels Safe at Home: No Assistive Devices: Glasses Review of Systems Review of Systems: All systems reviewed & are unremarkable except as noted in HPI & below Physical Exam Psychiatric: Orientation: alert and oriented x 3 Apperance: appropriately dressed and appropriately groomed Eye Contact: good eye contact Motor Behavior: no abnormal motor movements Speech: + loud speech (but not pressured) Affect: + irritable affect Mood: + irritable mood Thought Process: + tangential thought process Thought Content: + paranoid and + delusions Suicidal Thoughts: denies suicidal thoughts Homicidal Thoughts: denies homicidal thoughts Hallucinations: no auditory hallucinations and no visual hallucinations Cognition: language grossly intact; + attention not intact Estimated Intelligence: consistent with education level Insight: + poor insight Judgement: + poor judgement Vital Signs (Past 24 Hours): Last Vital Signs Temp 36.6 C 05/08/21 06:27 Pulse 96 H 05/08/21 06:28 Resp 16 05/08/21 06:27 BP 151/87 H 05/08/21 06:28 Pulse Ox 96 05/08/21 03:16 Exam Statement: A physical exam was performed in the ED by Dr. Munguia for the purposes of medical clearance. I accept that physical as correct and adequate for the purposes of the inpatient physical exam. Results & Data ([facility]) Laboratory Results Laboratory Results - last 24 hr 05/07/21 05/07/21 05/07/21 20:05 20:08 20:48 WBC 11.47 H RBC 5.32 Hgb 16.2 H Hct 48.6 H MCV 91.4 MCH 30.5 MCHC 33.3 RDW Std Deviation 48.5 H RDW Coeff of Amilcar 14.4 Plt Count 241 MPV 11.6 H Immature Gran % (Auto) 0.2 Neut % (Auto) 56.1 Lymph % (Auto) 35.1 Taliaferro % (Auto) 6.6 Eos % (Auto) 1.7 Baso % (Auto) 0.3 Neut # (Auto) 6.43 Lymph # (Auto) 4.03 H Taliaferro # (Auto) 0.76 H Eos # (Auto) 0.20 Baso # (Auto) 0.03 Immature Gran # (Auto) 0.02 Sodium Potassium Chloride Carbon Dioxide Anion Gap BUN Creatinine Est Cr Clr Drug Dosing Est GFR ( Amer) Est GFR (Non-Af Amer) BUN/Creatinine Ratio Glucose Calcium Total Bilirubin AST ALT Alkaline Phosphatase Troponin I Total Protein Albumin Globulin Albumin/Globulin Ratio TSH Urine Color Dark Yellow Urine Appearance Clear Urine pH 5.5 Ur Specific Mcgregor 1.025 Urine Protein Negative Urine Glucose (UA) Negative Urine Ketones Trace H Urine Blood 2+ H Urine Nitrite Negative Urine Bilirubin Negative Urine Urobilinogen Negative Ur Leukocyte Esterase Negative Urine WBC (Auto) 5-10 H Urine RBC (Auto) 0-4 U Hyaline Cast (Auto) 5-10 H U Epithel Cells (Auto) >30 H Urine Bacteria (Auto) 1+ H Salicylates Urine Opiates Screen Neg Ur Methadone, Qual Neg Acetaminophen Urine Barbiturates Neg Ur Phencyclidine (PCP) Neg U Amphetamin/Meth Scrn Neg MDMA (Ecstasy) Screen Neg U Benzodiazepines Scrn Neg Ur Cocaine Metabolite Neg U Marijuana (THC) Screen Neg Ethyl Alcohol mg/dL COVID-19 Eval Order SARS-CoV-2, RNA, NAAT 05/07/21 05/07/21 05/07/21 20:48 20:48 20:48 WBC RBC Hgb Hct MCV MCH MCHC RDW Std Deviation RDW Coeff of Amilcar Plt Count MPV Immature Gran % (Auto) Neut % (Auto) Lymph % (Auto) Taliaferro % (Auto) Eos % (Auto) Baso % (Auto) Neut # (Auto) Lymph # (Auto) Taliaferro # (Auto) Eos # (Auto) Baso # (Auto) Immature Gran # (Auto) Sodium 139 Potassium 3.4 L Chloride 108 H Carbon Dioxide 26 Anion Gap 5.0 BUN 11 Creatinine 0.56 L Est Cr Clr Drug Dosing 116.0 Est GFR ( Amer) 116.6 Est GFR (Non-Af Amer) 100.6 BUN/Creatinine Ratio 19.9 Glucose 118 H Calcium 8.8 Total Bilirubin 0.9 AST 22 ALT 41 Alkaline Phosphatase 108 Troponin I < 0.015 Total Protein 7.2 Albumin 3.7 Globulin 3.5 Albumin/Globulin Ratio 1.0 TSH 1.200 Urine Color Urine Appearance Urine pH Ur Specific Mcgregor Urine Protein Urine Glucose (UA) Urine Ketones Urine Blood Urine Nitrite Urine Bilirubin Urine Urobilinogen Ur Leukocyte Esterase Urine WBC (Auto) Urine RBC (Auto) U Hyaline Cast (Auto) U Epithel Cells (Auto) Urine Bacteria (Auto) Salicylates < 1.7 L Urine Opiates Screen Ur Methadone, Qual Acetaminophen < 2 L Urine Barbiturates Ur Phencyclidine (PCP) U Amphetamin/Meth Scrn MDMA (Ecstasy) Screen U Benzodiazepines Scrn Ur Cocaine Metabolite U Marijuana (THC) Screen Ethyl Alcohol mg/dL < 3.0 COVID-19 Eval Order SARS-CoV-2, RNA, NAAT 05/07/21 05/07/21 21:22 21:22 WBC RBC Hgb Hct MCV MCH MCHC RDW Std Deviation RDW Coeff of Amilcar Plt Count MPV Immature Gran % (Auto) Neut % (Auto) Lymph % (Auto) Taliaferro % (Auto) Eos % (Auto) Baso % (Auto) Neut # (Auto) Lymph # (Auto) Taliaferro # (Auto) Eos # (Auto) Baso # (Auto) Immature Gran # (Auto) Sodium Potassium Chloride Carbon Dioxide Anion Gap BUN Creatinine Est Cr Clr Drug Dosing Est GFR ( Amer) Est GFR (Non-Af Amer) BUN/Creatinine Ratio Glucose Calcium Total Bilirubin AST ALT Alkaline Phosphatase Troponin I Total Protein Albumin Globulin Albumin/Globulin Ratio TSH Urine Color Urine Appearance Urine pH Ur Specific Mcgregor Urine Protein Urine Glucose (UA) Urine Ketones Urine Blood Urine Nitrite Urine Bilirubin Urine Urobilinogen Ur Leukocyte Esterase Urine WBC (Auto) Urine RBC (Auto) U Hyaline Cast (Auto) U Epithel Cells (Auto) Urine Bacteria (Auto) Salicylates Urine Opiates Screen Ur Methadone, Qual Acetaminophen Urine Barbiturates Ur Phencyclidine (PCP) U Amphetamin/Meth Scrn MDMA (Ecstasy) Screen U Benzodiazepines Scrn Ur Cocaine Metabolite U Marijuana (THC) Screen Ethyl Alcohol mg/dL COVID-19 Eval [facility] SARS-CoV-2, RNA, NAAT NEGATIVE Diagnostic Findings patient refused head CT Current Inpatient Medications Current Inpatient Medications: Current Inpatient Medications Acetaminophen (Acetaminophen 325 Mg Tab) 650 mg PO Q4H PRN PRN Reason: Headache or Minor Fever Stop: 06/07/21 03:11 Al Hydrox/Mg Hydrox/Simethicone (Aluminum/Magnesium Susp 30 Ml Udc) 30 ml PO Q4H PRN PRN Reason: GI Upset Stop: 06/07/21 03:11 Bismuth Subsalicylate (Bismuth Subsalicylate Liqd 236 Ml) 15 ml PO PRN PRN PRN Reason: Loose Stool Stop: 06/07/21 03:11 Haloperidol (Haloperidol 5 Mg Tab) 5 mg PO Q6H PRN PRN Reason: psychosis Stop: 06/07/21 03:14 Hydroxyzine HCl (Hydroxyzine Hcl 25 Mg Tab) 50 mg PO HSZ PRN PRN Reason: Insomnia Stop: 06/07/21 03:11 Hydroxyzine HCl (Hydroxyzine Hcl 25 Mg Tab) 25 mg PO Q4H PRN PRN Reason: Anxiety Stop: 06/07/21 03:11 Lorazepam (Lorazepam 1 Mg Tab) 1 mg PO Q6 PRN PRN Reason: anxiety Stop: 06/07/21 03:13 Magnesium Hydroxide (Magnesium Hydroxide Susp 30 Ml Udc) 30 ml PO DAILY PRN PRN Reason: Constipation Stop: 06/07/21 03:11 Miscellaneous (Remove Nicoderm Patch) 1 ea N/A DAILY@0859 [facility] Stop: 06/07/21 08:58 Last Admin: 05/08/21 09:33 Dose: Not Given Documented by: Nicotine (Nicotine 21 Mg/24 Hr Tdsy) 21 mg TD QAM [facility] Stop: 06/07/21 08:59 Last Admin: 05/08/21 09:34 Dose: Not Given Documented by: Sodium Chloride (Sodium Chloride 0.65% Na Soln 45 Ml ([place])) 1 - 2 sprays NA PRN PRN PRN Reason: Nasal Dryness/Congestion Stop: 06/07/21 03:11
[2021-05-08] MEDS ORDERED: BENZTROPINE MESYLATE 1 MG/ML 2 ML AMP IM PRN (15:17)
[2021-05-08] MEDS ORDERED: LORazepam 2 MG/ML VIAL (IM USE) IM PRN (15:17)
[2021-05-08] MEDS ORDERED: HALOPERIDOL LACTATE 5 MG/ML 1 ML VIAL IM PRN (15:17)
[2021-05-09] MEDS: NICOTINE 21 MG/24 HR TDSY TD SCH (08:04)
[2021-05-09] MEDS ORDERED: OLANZapine 10 MG/2.1 ML SDV IM PRN ×2 (11:27→12:12)
--- NOTE | 2021-05-09 13:01 | Psychiatric Progress Note ---
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 6 week increase in paranoid and disorganized behavior per family, last antipsychotic medication rx unknown--[facility] pharmacy says no rx since 01/2020 for any medication and no antipsychotics on file in their system. (1) Psychosis: 05/09/21--the patient continues to refuse treatment planning, increase in irritability today, 303 commitment paperwork filed with support of family, will likely require medication over objection. Change prn Haldol to Zyprexa since tolerated/positive response before though no local providers offer the HEAD. 05/08/21--The patient was admitted to the [facility] on q15 min checks (behavioral with suicide precautions) for safety. The patient will participate in group, recreational, and milieu therapies and will be offered additional individual and family sessions as clinically appropriate. The patient is adamantly refusing medications at this time, Ativan and antipsychotics were offered. She is attending to ADLs and meals on unit but is u nsafe to return home given agitation around belief has been replaced. Her condition appears to be driving hypertension and VS will be monitored. Prn Ativan and Haldol ordered pending additional collateral. May be difficult to justify forced meds but unlikely to recover without them, clearly if ultimately taking meds would need conversion to HEAD. Delusions are sometimes less likely to respond than other positive symptoms. MNPR due to delusions and unpredictable irritability. Inventory Assets Strengths: has been out of hospital for some time, identifies trust in Dr. Akbar Needs: collateral, family involvement in care Risk Factors Assessment Male: No : Yes Do You Have Access To A Gun?: Yes (she reports that got guns returned after her last 302) Mental Health Diagnoses: Yes Substance Use Disorders: No Previous Attempt: No Protective Factors Assessment Employed: No Interval History Identifying Information 61 yo female admit 05/07 on a 302 involuntary commitment for paranoia. Chief Complaint "I really don't want you or anyone in here". spoke with me briefly at [facility]. Review of Systems Sleep Information Total Hours of Sleep: 3 Sleep Comments: Pt's sleep was broken throughout the night. Meal Information Percent Meal Consumed - Breakfast: 100 Percent Meal Consumed - Lunch: 100 Percent Meal Consumed - Dinner: 100 Subjective Subjective Patient was seen & assessed and interval progress reviewed with nursing and social work. Additional collateral from family is that at baseline she is pleasant, enjoys cooking for others, unclear when she may have stopped medication but did well on Zyprexa for years. No evidence of cognitive decline or baseline paranoia. Within the past 6 weeks she has become irritable, now doesn't recognize her own mother and yells at her to leave the home. She won't eat unless she prepares the food and won't share with others. She wouldn't allow her daughter to drink a bottle water. She does discuss hearing voices telling her that if doesn't do things a certain way that bad things will happen. They are concerned that if an emergency came up, EMS could not get to her as she barricades herself in rooms with moving furniture, even metal barbells. They have witnessed her forgetting to turn the stove off for up to 45 min when goes outside to smoke. She stayed with her daughter overnight in early April and they found her wandering in the street at 2 am with the door of the house wide open (again, no cognitive issues at baseline to suggest dementia). BP remains elevated here and refusing any medication. Physical Exam Psychiatric Orientation: alert and oriented x 3 Apperance: appropriately dressed and appropriately groomed Eye Contact: + poor eye contact Motor Behavior: no abnormal motor movements Speech: + loud speech (but not pressured) Affect: + irritable affect Mood: + irritable mood Thought Process: + tangential thought process Thought Content: + paranoid and + delusions Suicidal Thoughts: denies suicidal thoughts Homicidal Thoughts: denies homicidal thoughts Hallucinations: no auditory hallucinations and no visual hallucinations Cognition: language grossly intact; + attention not intact Estimated Intelligence: consistent with education level Insight: + poor insight Judgement: + poor judgement Vital Signs (Past 24 Hours) Last Vital Signs Temp 36.4 C L 05/09/21 06:38 Pulse 79 05/09/21 06:39 Resp 18 05/09/21 06:38 BP 169/108 H 05/09/21 06:39 Pulse Ox 96 05/08/21 03:16 Results & Data ([facility]) Current Inpatient Medications Current Inpatient Medications: Current Inpatient Medications Acetaminophen (Acetaminophen 325 Mg Tab) 650 mg PO Q4H PRN PRN Reason: Headache or Minor Fever Stop: 06/07/21 03:11 Al Hydrox/Mg Hydrox/Simethicone (Aluminum/Magnesium Susp 30 Ml Udc) 30 ml PO Q4H PRN PRN Reason: GI Upset Stop: 06/07/21 03:11 Benztropine Mesylate (Benztropine Mesylate 1 Mg Tab) 1 mg PO Q6 PRN PRN Reason: muscle spasm Stop: 06/07/21 15:15 Bismuth Subsalicylate (Bismuth Subsalicylate Liqd 236 Ml) 15 ml PO PRN PRN PRN Reason: Loose Stool Stop: 06/07/21 03:11 Hydroxyzine HCl (Hydroxyzine Hcl 25 Mg Tab) 50 mg PO HSZ PRN PRN Reason: Insomnia Stop: 06/07/21 03:11 Hydroxyzine HCl (Hydroxyzine Hcl 25 Mg Tab) 25 mg PO Q4H PRN PRN Reason: Anxiety Stop: 06/07/21 03:11 Lorazepam (Lorazepam 1 Mg Tab) 1 mg PO Q6 PRN PRN Reason: anxiety Stop: 06/07/21 03:13 Magnesium Hydroxide (Magnesium Hydroxide Susp 30 Ml Udc) 30 ml PO DAILY PRN PRN Reason: Constipation Stop: 06/07/21 03:11 Miscellaneous (Remove Nicoderm Patch) 1 ea N/A DAILY@0859 [facility] Stop: 06/07/21 08:58 Last Admin: 05/09/21 08:03 Dose: Not Given Documented by: Nicotine (Nicotine 21 Mg/24 Hr Tdsy) 21 mg TD QAM [facility] Stop: 06/07/21 08:59 Last Admin: 05/09/21 08:04 Dose: Not Given Documented by: Olanzapine (Olanzapine Zydis 10 Mg Orally Dis. Tab) 10 mg PO HS ZHANE Stop: 06/08/21 21:59 Olanzapine (Olanzapine 10 Mg/2.1 Ml Sdv) 10 mg IM Q4 PRN PRN Reason: Agitation Stop: 06/08/21 11:26 Sodium Chloride (Sodium Chloride 0.65% Na Soln 45 Ml ([place])) 1 - 2 sprays NA PRN PRN PRN Reason: Nasal Dryness/Congestion Stop: 06/07/21 03:11 Mental Health & Subst Abuse Tx Therapist Name of Therapist: N/A Hoister Name of Hoister: N/A Post Discharge Appointments Primary Care Physician Name Of Family Doctor: [facility] - Dr. Gloria Morales Primary Care Provider Appointment Comment: Lamont Riley [place], [address], [place] Contact Information Discharge Discharge Address: [address] [place] [address] (1) Psychosis Psychosis type: unspecified psychosis type Qualified Code(s): F29 - Unspecified psychosis not due to a substance or known physiological condition
--- NOTE | 2021-05-10 06:22 | Electrocardiogram Report ---
Test Reason : Blood Pressure : / mmHG Vent. Rate : 102 BPM Atrial Rate : 102 BPM P-R Int : 144 ms QRS Dur : 084 ms QT Int : 360 ms P-R-T Axes : 062 004 038 degrees QTc Int : 469 ms Sinus tachycardia Otherwise normal ECG When compared with ECG of 31-OCT-2016 15:47, No significant change was found Confirmed by Ricardo Carlos ([id number]) on 05/10/2021 6:22:31 AM Referred By: REFERRED SELF Confirmed By:Ricardo Carlos
[2021-05-10] MEDS: NICOTINE 21 MG/24 HR TDSY TD SCH (08:33)
--- NOTE | 2021-05-10 08:59 | Psychiatric Progress Note ---
Date of Service May 10, 2021 Impression / Recommendations Impression 61 yo female with longstanding diagnosis of schizophrenia, no medication for years, presents with increase in paranoia driven primarily by a Capgras' delusion. 6 week increase in paranoid and disorganized behavior per family, last antipsychotic medication rx unknown--[facility] pharmacy says no rx since 01/2020 for any medication and no antipsychotics on file in their system. (1) Psychosis: 05/10/21--303 granted. Patient is refusing hs Zyprexa and will ask Dr. Correa to provide 2nd opinion for medications over objection. Antipsychotic medications are medically necessary to treat the patients paranoia related to to schizophrenia. She is not sleeping and exhibiting disorganized behavior. At home this resulted in standing in the road in the middle of the night and leaving the stove on. Lack of insight into her condition is leading to med refusal and paranoia and agitation is driving her BP to be elevated and she will not accept any medications, even on an as needed basis. Without this care and intervention, she is at significant risk of or serious disability within the next 30 days. Staff have spoken with and I have spoken with daughter to gather collateral to provide emergency care to patient and they are in support of extended involuntary commitment and meds over objection. During the hearing the patient stated she views her as a threat. She idenified her mother and daughter as supports in caring for herself and per family report this is not an option as she has already not been able to identify mother and berates them. 05/09/21--the patient continues to refuse treatment planning, increase in irritability today, 303 commitment paperwork filed with support of family, will likely require medication over objection. Change prn Haldol to Zyprexa since tolerated/positive response before though no local providers offer the HEAD. 05/08/21--The patient was admitted to the [facility] ([facility] inpatient mental health unit) on q15 min checks (behavioral with suicide precautions) for safety. The patient will participate in group, recreational, and milieu therapies and will be offered additional individual and family sessions as clinically appropriate. The patient is adamantly refusing medications at this time, Ativan and antipsychotics were offered. She is attending to ADLs and meals on unit but is unsafe to return home given agitation around belief has been replaced. Her condition appears to be driving hypertension and VS will be monitored. Prn Ativan and Haldol ordered pending additional collateral. May be difficult to justify forced meds but unlikely to recover without them, clearly if ultimately taking meds would need conversion to HEAD. Delusions are sometimes less likely to respond than other positive symptoms. MNPR due to delusions and unpredictable irritability. Inventory Assets Strengths: has been out of hospital for some time, identifies trust in Dr. Akbar Needs: collateral, family involvement in care Risk Factors Assessment Male: No : Yes Do You Have Access To A Gun?: Yes (she reports that got guns returned after her last 302) Mental Health Diagnoses: Yes Substance Use Disorders: No Previous Attempt: No Protective Factors Assessment Employed: No Interval History Identifying Information 61 yo female admit 05/07 on a 302 involuntary commitment for paranoia. Chief Complaint "there are people trying to break into my house, how would you like that?". Review of Systems Sleep Information Total Hours of Sleep: 1 Sleep Comments: pacing unit, focused on wanting to leave. Delusional/paranoid Meal Information Percent Meal Consumed - Breakfast: 100 Percent Meal Consumed - Lunch: 50 Percent Meal Consumed - Dinner: 90 Subjective Subjective Patient was seen & assessed and interval progress reviewed with treatment team. Remains very irritable, minimal sleep overnight. BP elevations related to anxiety driven by paranoia continued. She is refusing medications/prns. Will not allow anyone into her room. Complains about q15 min checks as believes staff, particularly males are trying to harm her. asked for foreclosure home inspector's number in the middle of the night to file for divorce since was petitioner. States she plans to move away from family. Would like to participate in her 303 hearing but will only talk on a corded phone as believes cellular (and talking to the doctor) make planes crash. Paranoid re: fluids being contaminated with salt. Physical Exam Psychiatric Orientation: alert and oriented x 3 Apperance: appropriately dressed and appropriately groomed Eye Contact: + poor eye contact Motor Behavior: + psychomotor agitation Speech: + loud speech (but not pressured) Affect: + irritable affect Mood: + irritable mood Thought Process: + tangential thought process Thought Content: + paranoid and + delusions Suicidal Thoughts: denies suicidal thoughts Homicidal Thoughts: denies homicidal thoughts Hallucinations: no auditory hallucinations and no visual hallucinations Cognition: language grossly intact; + attention not intact Estimated Intelligence: consistent with education level Insight: + poor insight Judgement: + poor judgement Vital Signs (Past 24 Hours) Last Vital Signs Temp 36.3 C L 05/10/21 06:42 Pulse 84 05/10/21 06:43 Resp 18 05/10/21 06:42 BP 168/92 H 05/10/21 06:43 Pulse Ox 96 05/08/21 03:16 Results & Data ([facility]) Current Inpatient Medications Current Inpatient Medications: Current Inpatient Medications Acetaminophen (Acetaminophen 325 Mg Tab) 650 mg PO Q4H PRN PRN Reason: Headache or Minor Fever Stop: 06/07/21 03:11 Al Hydrox/Mg Hydrox/Simethicone (Aluminum/Magnesium Susp 30 Ml Udc) 30 ml PO Q4H PRN PRN Reason: GI Upset Stop: 06/07/21 03:11 Benztropine Mesylate (Benztropine Mesylate 1 Mg Tab) 1 mg PO Q6 PRN PRN Reason: muscle spasm Stop: 06/07/21 15:15 Bismuth Subsalicylate (Bismuth Subsalicylate Liqd 236 Ml) 15 ml PO PRN PRN PRN Reason: Loose Stool Stop: 06/07/21 03:11 Hydroxyzine HCl (Hydroxyzine Hcl 25 Mg Tab) 50 mg PO HSZ PRN PRN Reason: Insomnia Stop: 06/07/21 03:11 Hydroxyzine HCl (Hydroxyzine Hcl 25 Mg Tab) 25 mg PO Q4H PRN PRN Reason: Anxiety Stop: 06/07/21 03:11 Lorazepam (Lorazepam 1 Mg Tab) 1 mg PO Q6 PRN PRN Reason: anxiety Stop: 06/07/21 03:13 Magnesium Hydroxide (Magnesium Hydroxide Susp 30 Ml Udc) 30 ml PO DAILY PRN PRN Reason: Constipation Stop: 06/07/21 03:11 Miscellaneous (Remove Nicoderm Patch) 1 ea N/A DAILY@0859 [facility] Stop: 06/07/21 08:58 Last Admin: 05/10/21 08:33 Dose: Not Given Documented by: Nicotine (Nicotine 21 Mg/24 Hr Tdsy) 21 mg TD QAM [facility] Stop: 06/07/21 08:59 Last Admin: 05/10/21 08:33 Dose: Not Given Documented by: Olanzapine (Olanzapine Zydis 10 Mg Orally Dis. Tab) 10 mg PO HS [facility] Stop: 06/08/21 21:59 Last Admin: 05/09/21 20:50 Dose: Not Given Documented by: Olanzapine (Olanzapine 10 Mg/2.1 Ml Sdv) 10 mg IM Q4 PRN PRN Reason: Agitation Stop: 06/08/21 11:26 Sodium Chloride (Sodium Chloride 0.65% Na Soln 45 Ml ([place])) 1 - 2 sprays NA PRN PRN PRN Reason: Nasal Dryness/Congestion Stop: 06/07/21 03:11 Mental Health & Subst Abuse Tx Therapist Name of Therapist: N/A Instructional Systems Design Consultant Name of Instructional Systems Design Consultant: N/A Post Discharge Appointments Primary Care Physician Name Of Family Doctor: [facility] - Dr. Gloria Morales Primary Care Provider Appointment Comment: [address] [place] [address], [address], [place] Contact Information Discharge Discharge Address: [address] [place] [address] (1) Psychosis Psychosis type: unspecified psychosis type Qualified Code(s): F29 - Unspecified psychosis not due to a substance or known physiological condition
--- NOTE | 2021-05-10 11:14 | Communication Note ---
Date of Service: May 10, 2021 The patient was able to maintain herself following the hearing. She is requesting to be moved to another room so that a flashlight does not have to be used for checks at night. She is more reality based in conversation with staff today. We have been notified that the publication distributor will be appealing the 303 on the patient's behalf. Currently the patient is deescalated compared to prior to the hearing and does not need emergency medication. Will continue to monitor and offer hs Zyprexa.
[2021-05-11] MEDS: NICOTINE 21 MG/24 HR TDSY TD SCH (07:56)
--- NOTE | 2021-05-11 15:35 | Psychiatric Progress Note ---
Date of Service May 11, 2021 Impression / Recommendations Impression 61 yo female with longstanding diagnosis of schizophrenia, no medication for years, presents with increase in paranoia driven primarily by a Capgras' delusion. 6 week increase in paranoid and disorganized behavior per family, last antipsychotic medication rx unknown--[facility] pharmacy says no rx since 01/2020 for any medication and no antipsychotics on file in their system. (1) Psychosis: 05/10/21--303 granted. Patient is refusing hs Zyprexa and will ask Dr. Correa to provide 2nd opinion for medications over objection. Antipsychotic medications are medically necessary to treat the patients paranoia related to to schizophrenia. She is not sleeping and exhibiting disorganized behavior. At home this resulted in standing in the road in the middle of the night and leaving the stove on. Lack of insight into her condition is leading to med refusal and paranoia and agitation is driving her BP to be elevated and she will not accept any medications, even on an as needed basis. Without this care and intervention, she is at significant risk of or serious disability within the next 30 days. Staff have spoken with and I have spoken with daughter to gather collateral to provide emergency care to patient and they are in support of extended involuntary commitment and meds over objection. During the hearing the patient stated she views her as a threat. She idenified her mother and daughter as supports in caring for herself and per family report this is not an option as she has already not been able to identify mother and berates them. 05/09/21--the patient continues to refuse treatment planning, increase in irritability today, 303 commitment paperwork filed with support of family, will likely require medication over objection. Change prn Haldol to Zyprexa since tolerated/positive response before though no local providers offer the HEAD. 05/08/21--The patient was admitted to the [facility] ([facility] inpatient mental health unit) on q15 min checks (behavioral with suicide precautions) for safety. The patient will participate in group, recreational, and milieu therapies and will be offered additional individual and family sessions as clinically appropriate. The patient is adamantly refusing medications at this time, Ativan and antipsychotics were offered. She is attending to ADLs and meals on unit but is unsafe to return home given agitation around belief has been replaced. Her condition appears to be driving hypertension and VS will be monitored. Prn Ativan and Haldol ordered pending additional collateral. May be difficult to justify forced meds but unlikely to recover without them, clearly if ultimately taking meds would need conversion to HEAD. Delusions are sometimes less likely to respond than other positive symptoms. MNPR due to delusions and unpredictable irritability. Inventory Assets Strengths: has been out of hospital for some time, identifies trust in Dr. Akbar Needs: collateral, family involvement in care Risk Factors Assessment Male: No : Yes Do You Have Access To A Gun?: Yes (she reports that got guns returned after her last 302) Mental Health Diagnoses: Yes Substance Use Disorders: No Previous Attempt: No Protective Factors Assessment Employed: No Interval History Identifying Information 61 yo female admit 05/07 on a 302 involuntary commitment for paranoia. Chief Complaint "I need to get out oh here". Review of Systems Sleep Information Total Hours of Sleep: 2 Sleep Comments: Pt was up walking the unit Meal Information Percent Meal Consumed - Breakfast: 100 Percent Meal Consumed - Lunch: 75 Percent Meal Consumed - Dinner: 100 Subjective Subjective Patient was seen & assessed and interval progress reviewed with treatment team nursing and social work. Patient continues to refuse medication as well as refused the need for medicatio n. She states that she is not bothered by her delusions, which she refers to as "gifts". She denies ever feeling violent or distressed by any of the psychotic- like symptoms she experiences. She is otherwise able to maintain a full conversation with good attention to detail. Denies any suicidal or homicidal ideation currently. Long discussion held today about the utility of inpatient treatment if patient continues to refuse medications. Patient stated that she will think about taking medication tonight, although remains hesitant. At this time it seems that medication over objection would be unwarranted due to lack of access furtherance or acting on these delusions. Furthermore patient appears to have been coping with this for greater than 7 years unmedicated. We will continue to have discussion about utility of inpatient treatment with social work team as well as discuss discharge options. I do think at this time the patient will benefit from receiving treatment however the ability to do so may be challenging. Physical Exam Psychiatric Orientation: alert and oriented x 3 Apperance: appropriately dressed and appropriately groomed Eye Contact: good eye contact and + poor eye contact Motor Behavior: no abnormal motor movements and + psychomotor agitation Speech: + loud speech (but not pressured) Affect: + irritable affect Mood: + irritable mood Thought Process: + tangential thought process Thought Content: + paranoid and + delusions Suicidal Thoughts: denies suicidal thoughts Homicidal Thoughts: denies homicidal thoughts Hallucinations: no auditory hallucinations and no visual hallucinations Cognition: language grossly intact; + attention not intact Estimated Intelligence: consistent with education level Insight: + poor insight Judgement: + poor judgement Vital Signs (Past 24 Hours) Last Vital Signs Temp 36.9 C 05/10/21 20:13 Pulse 81 05/11/21 06:00 Resp 20 05/11/21 06:00 BP 169/108 H 05/11/21 06:04 Pulse Ox 96 05/08/21 03:16 Results & Data ([facility]) Current Inpatient Medications Current Inpatient Medications: Current Inpatient Medications Acetaminophen (Acetaminophen 325 Mg Tab) 650 mg PO Q4H PRN PRN Reason: Headache or Minor Fever Stop: 06/07/21 03:11 Al Hydrox/Mg Hydrox/Simethicone (Aluminum/Magnesium Susp 30 Ml Udc) 30 ml PO Q4H PRN PRN Reason: GI Upset Stop: 06/07/21 03:11 Benztropine Mesylate (Benztropine Mesylate 1 Mg Tab) 1 mg PO Q6 PRN PRN Reason: muscle spasm Stop: 06/07/21 15:15 Bismuth Subsalicylate (Bismuth Subsalicylate Liqd 236 Ml) 15 ml PO PRN PRN PRN Reason: Loose Stool Stop: 06/07/21 03:11 Hydroxyzine HCl (Hydroxyzine Hcl 25 Mg Tab) 50 mg PO HSZ PRN PRN Reason: Insomnia Stop: 06/07/21 03:11 Hydroxyzine HCl (Hydroxyzine Hcl 25 Mg Tab) 25 mg PO Q4H PRN PRN Reason: Anxiety Stop: 06/07/21 03:11 Lorazepam (Lorazepam 1 Mg Tab) 1 mg PO Q6 PRN PRN Reason: anxiety Stop: 06/07/21 03:13 Magnesium Hydroxide (Magnesium Hydroxide Susp 30 Ml Udc) 30 ml PO DAILY PRN PRN Reason: Constipation Stop: 06/07/21 03:11 Miscellaneous (Remove Nicoderm Patch) 1 ea N/A DAILY@0859 [facility] Stop: 06/07/21 08:58 Last Admin: 05/11/21 07:56 Dose: Not Given Documented by: Nicotine (Nicotine 21 Mg/24 Hr Tdsy) 21 mg TD QAM [facility] Stop: 06/07/21 08:59 Last Admin: 05/11/21 07:56 Dose: 21 mg Documented by: Olanzapine (Olanzapine Zydis 10 Mg Orally Dis. Tab) 10 mg PO HS [facility] Stop: 06/08/21 21:59 Last Admin: 05/10/21 21:08 Dose: Not Given Documented by: Olanzapine (Olanzapine 10 Mg/2.1 Ml Sdv) 10 mg IM Q4 PRN PRN Reason: Agitation Stop: 06/08/21 11:26 Sodium Chloride (Sodium Chloride 0.65% Na Soln 45 Ml ([place])) 1 - 2 sprays NA PRN PRN PRN Reason: Nasal Dryness/Congestion Stop: 06/07/21 03:11 Mental Health & Subst Abuse Tx Therapist Name of Therapist: N/A Form Worker Name of Form Worker: N/A Post Discharge Appointments Primary Care Physician Name Of Family Doctor: [facility] - Dr. Gloria Morales Primary Care Provider Appointment Comment: [address] [facility], [address], [place] Contact Information Discharge Discharge Address: [address] [place] [address] (1) Psychosis Psychosis type: unspecified psychosis type Qualified Code(s): F29 - Unspecified psychosis not due to a substance or known physiological condition
[2021-05-12] MEDS: NICOTINE 21 MG/24 HR TDSY TD SCH (07:50)
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
--- NOTE | 2021-05-12 17:21 | Communication Note ---
Date of Service: May 12, [address] Correa earlier today as patient continued to improve in the therapeutic milieu of the unit and he no longer felt she met criteria for involuntary commitment. The patient's irritability, poor sleep, thought disorganization, and paranoid delusions were most prominent in her first 48 hours of admission. An extended involuntary commitment was sought as unclear she would be able to be discharged by the time her 302 . It was anticipated her symptoms would persist or even worsen and she would meet criteria for medications over objection, in fact I gave a first opinion early on 05/10/21. Almost immediately after, she exhibited significant improvement coinciding with the 303 hearing. She maintained her ADLs and behavior since. I agree she has not meet criteria for medication over objection since 05/10/21 pm. Given that many of her delusions were triggered by her , I recommended to Dr. Correa that a [id number] family meeting take place with prior to making a decision re: discharge.
== END 2021-05-12 14:30 | disposition home or self-care (01) | DRG 885 ==
LOC: ED 19:48 → 3S 05-08 02:18